=== PATIENT | female | born 1995 | race African-American/Black ===

== ENCOUNTER 2019-04-20 16:20 | Inpatient (IN) | payer OTHER ==
[2019-04-20 17:14] VITALS: BMI 33.1
[2019-04-20 18:54] LABS: BASO % 0.4 % (0-2.0); EOS % 0.9 % (0-4.5); HEMATOCRIT 35.9 % (32.4-45.2); HEMOGLOBIN 11.8 GM/dL (10.7-15.3); LYMPH % 19.6 % (8-40); MCH 27.2 pg (25.7-33.7); MCHC 32.9 g/dl (32.0-36.0); MEAN CELL VOLUME 82.5 fl (80-96); MEAN PLT VOLUME 7.8 fl (7.5-11.1); MONO % 7.8 % (3.8-10.2); NEUT % 71.3 % (42.8-82.8); PLATELET COUNT 222 K/MM3 (134-434); RBC 4.35 M/mm3 (3.60-5.2); WHITE BLOOD COUNT 6.9 K/mm3 (4.0-10.0)
[2019-04-20 19:12] LABS: INR 0.92 (0.83-1.09); PROTHROMBIN TIME (PATIENT) 10.8 SEC (9.7-13.0)
[2019-04-20 19:15] LABS: ACTIVATED PTT 31.9 SECONDS (25.2-36.5)
[2019-04-20 19:23] LABS: BLOOD UREA NITROGEN 3.9 mg/dL (7-18); CALCIUM 8.8 mg/dL (8.5-10.1); CREATININE 0.5 mg/dL (0.55-1.3); POTASSIUM 3.8 mmol/L (3.5-5.1)
--- NOTE | 2019-04-20 22:00 | HP ---
Past Medical History - Primary Care Physician PCP:: Izabel Qureshi - Admission Chief Complaint: Postdates. Oligohydramnious History of Present Illness: 23 yo EDC EGA 40.6 weeks admitted for induction due to oligo and BPP 11/15 History Source: Patient Limitations to Obtaining History: No Limitations - Past Medical History ...: 1 ...Para: 0 ...LMP: 07/08/18 ... Weeks Gestation by Dates: 40.6 ...EDC by Dates: 04/14/19 - Past Surgical History Past Surgical History: Yes: None Hx Myomectomy: No Hx Transabdominal Cerclage: No - Smoking History Smoking history: Never smoked Have you smoked in the past 12 months: No - Alcohol/Substance Use Hx Alcohol Use: No History of Substance Use: reports: None - Social History Usual Living Arrangement: Yes: With Spouse History of Recent Travel: No Home Medications - Allergies Allergies/Adverse Reactions: Allergies Allergy/AdvReac Type Severity Reaction Status Date / Time No Known Allergies Allergy Verified 04/20/19 16:56 - Home Medications Home Medications: Ambulatory Orders Prenat 115/Iron Fum/Folic/Dss [ 19 Tablet] 1 tab PO DAILY 04/20/19 Review of Systems - Review of Systems Constitutional: reports: No Symptoms Eyes: reports: No Symptoms HENT: reports: No Symptoms Neck: reports: No Symptoms Cardiovascular: reports: No Symptoms Respiratory: reports: No Symptoms Gastrointestinal: reports: No Symptoms Genitourinary: reports: No Symptoms Breasts: reports: No Symptoms Reported Musculoskeletal: reports: No Symptoms Integumentary: reports: No Symptoms Neurological: reports: No Symptoms Endocrine: reports: No Symptoms Hematology/Lymphatic: reports: No Symptoms Psychiatric: reports: No Symptoms Physical Exam - Maternity Vital Signs: Vital Signs Temperature 98.7 F 04/20/19 17:08 Pulse Rate 88 04/20/19 20:00 Respiratory Rate 18 04/20/19 20:00 Blood Pressure 132/78 04/20/19 20:00 O2 Sat by Pulse Oximetry (%) Constitutional: Yes: Well Nourished, No Distress Breast(s): Yes: WNL - Abdominal Exam/OB Fundal Height: 41 Number of Fetuses: Single Presentation: Vertex Contractions: Yes Regularity: Irregular Monitor Mode: External Heart Rate (range): 140 Heart Rate Location: [facility] Category: I Accelerations: Non-Uniform - Vaginal Exam/OB Dilatation (cm): 1 Effacement (%): 50 Presentation: Vertex/Position Station: -2 - Physical Exam Extremities: Yes: WNL Edema: No Integumentary: Yes: WNL Psychiatric: Yes: WNL, Alert, Oriented - Labs Lab Results: CBC, BMP 04/20/19 18:28 04/20/19 18:28 Hemorrhage Risk Assessment - Risk Factors Risk Score: 0 Risk Level: Low Risk Problem List - Problems (1) Post-dates Code(s): O48.0 - POST-TERM Qualifiers: Post-term type: 40-42 weeks gestation Qualified Code(s): O48.0 - Post-term Assessment/Plan Post dates IUP@41 week Oligio Poor BPP Cat 1 Plan Cervidil
[2019-04-20] MEDS ORDERED: PROMETHAZINE HCL 25 MG/1 ML VIAL IVPUSH ONE (22:04)
[2019-04-20] MEDS ORDERED: BUTORPHANOL TARTRATE 1 MG/ML VIAL IVPB ONE (22:04)
[2019-04-20] MEDS: ELECTROLYTE-148 SOLN 1,000 ML IV SCH (22:30)
[2019-04-20] MEDS ORDERED: BUTORPHANOL TARTRATE 1 MG/ML VIAL ONE ×2 (22:42)
[2019-04-20] MEDS ORDERED: PROMETHAZINE HCL 25 MG/1 ML VIAL ONE (22:43)
[2019-04-21] MEDS ORDERED: AMPICILLIN SODIUM 2 GM VIAL ONE (03:22)
[2019-04-21] MEDS ORDERED: AMPICILLIN - 2 GM in SODIUM CHLORIDE 100 ML IVPB ONE (03:30)
[2019-04-21] MEDS ORDERED: FENTANYL/BUPIVACAINE/NS/PF - PCEA - 50 ML DISP.SYRIN EP ONE ×3 (03:40→12:16)
[2019-04-21] MEDS ORDERED: LIDO 2%/EPI 1:200000 PRESRVFRE (20 ML SDVIAL) ONE ×2 (03:46→12:24)
[2019-04-21] MEDS ORDERED: BUPIVACAINE HCL/PF 2.5 MG/ML - 30 ML VIAL IJ ONE (03:46)
[2019-04-21] MEDS ORDERED: NALOXONE HCL 0.4 MG/ML VIAL IVPUSH PRN (04:10)
[2019-04-21] MEDS: FENTANYL/BUPIVACAINE/NS/PF - PCEA - 50 ML DISP.SYRIN EP SCH ×3 (04:15→12:21)
[2019-04-21] MEDS: AMPICILLIN - 1 GM in SODIUM CHLORIDE 100 ML IVPB SCH ×3 (07:33→19:45)
[2019-04-21 08:07] LABS: POC NITRAZINE POS
[2019-04-21] MEDS ORDERED: OXYTOCIN 30 UNITS in 0.9% NS 30 UNIT/500 ML INFUS.BAG IVPB ONE (08:22)
--- NOTE | 2019-04-21 08:27 | PN ---
Ante-Partal Exam - Subjective Vital Signs: Vital Signs Temperature 98.2 F 04/21/19 07:00 Pulse Rate 82 04/21/19 07:30 Respiratory Rate 20 04/21/19 07:30 Blood Pressure 112/68 04/21/19 07:30 O2 Sat by Pulse Oximetry (%) 100 04/21/19 07:30 Bleeding: No Headache: No Visual changes: No Right upper quadrant pain: No - Exam during Labor Category: I Monitor Accelerations: Present Monitor Decelerations: None Exam: Vaginal Dilatation (cm): 5
[2019-04-21] MEDS ORDERED: OXYTOCIN 30 UNITS in 0.9% NS 30 UNIT/500 ML INFUS.BAG IVPB SCH (08:30)
[2019-04-21] MEDS ORDERED: SODIUM CHLORIDE 100 ML IVPB ONE (10:58)
[2019-04-21] MEDS ORDERED: AMPICILLIN SODIUM 1 GM VIAL ONE (10:58)
[2019-04-21] MEDS: ELECTROLYTE-148 SOLN 1,000 ML IV SCH (12:52)
[2019-04-21] MEDS ORDERED: OXYTOCIN 20 UNITS in 0.9% NS 20 UNIT/1,000 ML INFUS.BAG IV ONE (14:05)
[2019-04-21] MEDS ORDERED: BENZOCAINE 20% 57 GM BOTTLE TP PRN (16:21)
[2019-04-21] MEDS ORDERED: BISACODYL 10 MG SUPP.RECT PR PRN (16:21)
[2019-04-21] MEDS ORDERED: METHYLERGONOVINE MALEATE 0.2 MG/1 ML AMP IM PRN (16:21)
[2019-04-21] MEDS ORDERED: IBUPROFEN 600 MG TABLET (FP) PO PRN (16:21)
[2019-04-21] MEDS ORDERED: ACETAMINOPHEN 325 MG TABLET (FP) PO PRN (16:21)
[2019-04-21] MEDS ORDERED: WITCH HAZEL 50% (TUCKS) 40 PAD/JAR PAD TP PRN (16:21)
[2019-04-21] MEDS ORDERED: BENZOCAINE 28 GM HEMORRHOIDAL OINTMENT PR PRN (16:21)
[2019-04-21] MEDS ORDERED: DINOPROSTONE 10 MG VAGINAL SUPPOSITORY VG ONE (16:22)
--- NOTE | 2019-04-21 16:24 | PROC ---
Obstetrical Vaccum Device - Doc. 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
[2019-04-21] MEDS ORDERED: OXYTOCIN 20 UNITS in 0.9% NS 20 UNIT/1,000 ML INFUS.BAG IV SCH (16:30)
[2019-04-22] MEDS ORDERED: FLU VACC QS2019-20(6MOS UP)/PF 60 MCG/0.5 ML SYRINGE IM ONE ×2 (06:45→10:00)
[2019-04-22 08:51] LABS: BASO % 0.1 % (0-2.0); EOS % 0.2 % (0-4.5); HEMATOCRIT 28.5 % (32.4-45.2); HEMOGLOBIN 9.3 GM/dL (10.7-15.3); LYMPH % 15.5 % (8-40); MCH 27.1 pg (25.7-33.7); MCHC 32.8 g/dl (32.0-36.0); MEAN CELL VOLUME 82.7 fl (80-96); MEAN PLT VOLUME 7.8 fl (7.5-11.1); MONO % 10.2 % (3.8-10.2); PLATELET COUNT 188 K/MM3 (134-434); RBC 3.44 M/mm3 (3.60-5.2); WHITE BLOOD COUNT 10.3 K/mm3 (4.0-10.0)
--- NOTE | 2019-04-22 09:09 | PN ---
Post Progress Note - Subjective Subjective: 23 yo Para 1 status post vacuum assisted vaginal delivery, seen and evaluated. Doing well. Post Day: 1 Type of Delivery: Vacuum Assist Vag Del Vital Signs: Vital Signs Temperature 97.9 F 04/22/19 06:00 Pulse Rate 74 04/22/19 06:00 Respiratory Rate 18 04/22/19 06:00 Blood Pressure 136/70 04/22/19 06:00 O2 Sat by Pulse Oximetry (%) 100 04/21/19 16:30 Breast Exam: Yes: Soft Uterus: Yes: Fundus Firm Abdomen/GI: Yes: Abdomen soft Lochia: Yes: Rubra Lochia, amount: Moderate Extremities: Yes: Calves non-tender Activity: Ambulating - Labs Labs: CBC WBC 10.3 K/mm3 (4.0-10.0) H 04/22/19 07:45 RBC 3.44 M/mm3 (3.60-5.2) L 04/22/19 07:45 Hgb 9.3 GM/dL (10.7-15.3) L 04/22/19 07:45 Hct 28.5 % (32.4-45.2) L D 04/22/19 07:45 MCV 82.7 fl (80-96) 04/22/19 07:45 MCH 27.1 pg (25.7-33.7) 04/22/19 07:45 MCHC 32.8 g/dl (32.0-36.0) 04/22/19 07:45 RDW 15.0 % (11.6-15.6) 04/22/19 07:45 Plt Count 188 K/MM3 (134-434) 04/22/19 07:45 MPV 7.8 fl (7.5-11.1) 04/22/19 07:45 Absolute Neuts (auto) 7.6 K/mm3 (1.5-8.0) 04/22/19 07:45 Neutrophils % 74.0 % (42.8-82.8) 04/22/19 07:45 Lymphocytes % 15.5 % (8-40) D 04/22/19 07:45 Monocytes % 10.2 % (3.8-10.2) 04/22/19 07:45 Eosinophils % 0.2 % (0-4.5) 04/22/19 07:45 Basophils % 0.1 % (0-2.0) 04/22/19 07:45 Nucleated RBC % 0 % (0-0) 04/22/19 07:45 Problem List - Problems (1) Status post vacuum-assisted vaginal delivery Problems reviewed: Yes Code(s): Z87.59 - PERSONAL HISTORY OF COMP OF PREG, CHLDBRTH AND THE PUERP Assessment/Plan Status post vaginal delivery Stable Continue routine care
[2019-04-22] MEDS ORDERED: DIPHTH,PERTUSS(ACELL),TET 0.5 ML DISP.SYRIN IM ONE (10:00)
[2019-04-22] MEDS ORDERED: FLU VACCINE QUAD 60 MCG/0.5 ML (MDV 19-20) IM ONE (10:00)
--- NOTE | 2019-04-23 07:28 | DS ---
Physical Exam-COMPLAINT MANAGER Vital Signs: Vital Signs Temperature 97.7 F 04/22/19 20:00 Pulse Rate 78 04/22/19 20:00 Respiratory Rate 20 04/22/19 20:00 Blood Pressure 130/75 04/22/19 20:00 O2 Sat by Pulse Oximetry (%) 100 04/21/19 16:30 Constitutional: No: No Distress Eyes: Yes: Conjunctiva Clear HENT: Yes: Atraumatic Neck: Yes: Supple Cardiovascular: Yes: Regular Rate and Rhythm Respiratory: Yes: Regular Gastrointestinal: Yes: Normal Bowel Sounds Pelvis: Yes: WNL Vaginal Exam: Yes: Bleeding Cervix: Yes: Normal Uterus: Yes: Firm ....Post : Yes: Uterus firm, Moderate lochia serosa Breast(s): Yes: WNL Extremities: Yes: WNL Neurological: Yes: Alert, Oriented ...Motor Strength: WNL Psychiatric: Yes: Alert, Oriented Labs: CBC, BMP 04/22/19 07:45 04/20/19 18:28 Delivery - Delivery Type of Anesthesia: Epidural Episiotomy/Laceration: Midline EBL (cc): 350 Delivery, Single - Stages of Labor Date 1st Stage Initiatied: 04/20/19 Time 1st Stage Initiated: 22:00 Date 2nd Stage Initiated: 04/21/19 Time 2nd Stage Initiated: 14:15 Date of Delivery: 04/21/19 Time of Delivery: 15:18 Time Placenta Delivered: 15:25 - Condition of Project 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: No Infant Gender: Female Weight: 7 lb 7 oz Total Hours ROM (Hrs/Mins): 12/15 - 1 Minute Total Score: 8 5 Minutes Total Score: 9 - [place] Feeding Plan Initial Plan: Exclusive throughout hospitalization Discharge Summary Problems reviewed: Yes Reason For Visit: INDUCTION OF LABOR Current Active Problems Post-dates (Acute) Status post vacuum-assisted vaginal delivery (Acute) Procedures: Principal: Vacuum assisted vaginal delivery Hospital Course: Routine care Health Concerns: None Plan of Treatment: Routine post op care F/U with MD in 6 weeks Goals: Resume regular activities in 6 weeks Condition: Good - Instructions Diet, Activity, Other Instructions: Dr. Izabel Qureshi Retail Marketing Executive discharge instructions Physical activity Resume your normal everyday activity as tolerated no heavy lifting or exercise until seen by your surgeon. You may walk unlimited jaelyn of and climb stairs. You may resume driving the car when you feel safe and comfortable behind the wheel. No sexual activity as instructed by Dr. Qureshi. Wound care If you have a bandage, leave it on, and keep dry for 48-72 hours. After that time discard the outer bandage. If they are tapes on the skin under the out of bandage leave them in place. They will peel off in the next 7 to 10 days. Do Not Peel them off. You may shower the day after surgery. If there are tapes present on the skin, you may shower over them. Diet There are no dietary restrictions. Eat healthy, high-fiber foods. Drink 6 to 8 glasses of liquid each day. This will assist in keeping your bowels are regular. Pain management You may take Tylenol or acetaminophen or Ibuprofen (for example, Motrin, Advil etc.) from my pain prescription medication is ordered should be taken as prescribed for moderate to severe pain. Call Dr. Qureshi for any of the following: Severe pain not relieved by medication Fever of 101 or higher Excessive bleeding or drainage on dressing Inability to urinate Call the office at [phone] for an appointment in seven days. Disposition: HOME - Home Medications Comprehensive Discharge Medication List: Ambulatory Orders Prenat 115/Iron Fum/Folic/Dss [ 19 Tablet] 1 tab PO DAILY 04/20/19
[2019-04-23 07:57] VITALS: BP 132/77; PULSE 82; TEMP 98.6
--- NOTE | 2019-04-25 20:54 | PN ---
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
== END 2019-04-23 13:25 | disposition home or self-care (01) | DRG 807 ==
LOC: JLDR 16:20 → J3W 04-21 16:30
PROVIDERS: ADMIT Obstetrics & Gynecology; ATTEND Obstetrics & Gynecology
PROC: 10D07Z6 Extraction of Products of Conception, Vacuum, Via Natural or Artificial Opening (ICD-10-PCS; principal; 2019-04-21)
PROC: 0W8NXZZ Division of Female Perineum, External Approach (ICD-10-PCS; 2019-04-21)
PROC: 10E0XZZ Delivery of Products of Conception, External Approach (ICD-10-PCS; 2019-04-21)
DX: O75.81 Maternal exhaustion complicating labor and delivery (principal); Z37.0 Single live birth; O48.0 Post-term pregnancy; O76 Abnormality in fetal heart rate and rhythm complicating labor and delivery; Z3A.41 41 weeks gestation of pregnancy
CPT/HCPCS: 36415; 36600; 59409; 80048; 82803; 83986-QW; 85025; 85610; 85730; 86593; 86850; 86900; 86901; 90686; 90715

== ENCOUNTER 2021-03-18 13:07 | Inpatient (IN) | payer OTHER ==
[2021-03-18] MEDS: DEXTROSE 5%-LACTATED RINGERS 1,000 ML IV SCH (13:25)
[2021-03-18] MEDS ORDERED: OXYTOCIN 30 UNITS in 0.9% NS 30 UNIT/500 ML INFUS.BAG IVPB SCH (13:45)
[2021-03-18 13:56] VITALS: BMI 32.5
[2021-03-18 14:24] LABS: BASO % 0.2 % (0-2.0); EOS % 0.5 % (0-4.5); HEMATOCRIT 30.8 % (32.4-45.2); HEMOGLOBIN 10.3 GM/dL (10.7-15.3); LYMPH % 15.9 % (8-40); MCH 26.5 pg (25.7-33.7); MCHC 33.4 g/dl (32.0-36.0); MEAN CELL VOLUME 79.3 fl (80-96); MEAN PLT VOLUME 7.4 fl (7.5-11.1); MONO % 6.7 % (3.8-10.2); NEUT % 76.7 % (42.8-82.8); PLATELET COUNT 224 10^3/uL (134-434); RBC 3.88 M/mm3 (3.60-5.2); RDW 16.1 % (11.6-15.6); WHITE BLOOD COUNT 7.8 K/mm3 (4.0-10.0)
[2021-03-18 14:32] LABS: INR 0.9 (0.83-1.09); PROTHROMBIN TIME (PATIENT) 11.1 SEC (9.7-13.0)
[2021-03-18 14:35] LABS: ACTIVATED PTT 28.2 SECONDS (25.2-36.5)
[2021-03-18 14:42] LABS: BLOOD UREA NITROGEN 6.3 mg/dL (7-18); CALCIUM 8.4 mg/dL (8.5-10.1)
[2021-03-18 14:46] LABS: CREATININE 0.5 mg/dL (0.55-1.3)
[2021-03-18] MEDS ORDERED: PCA PUMP NR ONE ×2 (18:15→22:23)
[2021-03-18] MEDS ORDERED: FENTANYL/BUPIVACAINE/NS/PF - PCEA - 50 ML DISP.SYRIN EP ONE ×2 (18:21→22:23)
[2021-03-18] MEDS: FENTANYL/BUPIVACAINE/NS/PF - PCEA - 50 ML DISP.SYRIN EP SCH ×2 (18:30→22:40)
[2021-03-18] MEDS ORDERED: NALOXONE HCL 0.4 MG/ML VIAL IVPUSH PRN (20:23)
[2021-03-19] MEDS ORDERED: PCA PUMP NR ONE ×4 (00:21→07:49)
[2021-03-19] MEDS: DEXTROSE 5%-LACTATED RINGERS 1,000 ML IV SCH (02:30)
[2021-03-19] MEDS ORDERED: FENTANYL/BUPIVACAINE/NS/PF - PCEA - 50 ML DISP.SYRIN EP ONE ×2 (03:13→07:49)
[2021-03-19] MEDS: FENTANYL/BUPIVACAINE/NS/PF - PCEA - 50 ML DISP.SYRIN EP SCH (03:15)
[2021-03-19] MEDS ORDERED: IBUPROFEN 600 MG TABLET (FP) PO ONE (08:02)
[2021-03-19] MEDS ORDERED: LIDOCAINE HCL 1% PRESERVATIVE FREE - 30ML VIAL ONE (10:36)
[2021-03-19] MEDS ORDERED: OXYTOCIN 30 UNITS in 0.9% NS 30 UNIT/500 ML INFUS.BAG IVPB ONE (10:37)
[2021-03-19] MEDS ORDERED: OXYTOCIN 20 UNITS in 0.9% NS 20 UNIT/1,000 ML INFUS.BAG IV ONE (10:37)
[2021-03-19] MEDS ORDERED: METHYLERGONOVINE MALEATE 0.2 MG/1 ML AMP IM PRN (11:26)
[2021-03-19] MEDS ORDERED: BISACODYL 10 MG SUPP.RECT RC PRN (11:26)
[2021-03-19] MEDS ORDERED: ACETAMINOPHEN 325 MG TABLET (FP) PO PRN (11:26)
[2021-03-19] MEDS ORDERED: BENZOCAINE 28 GM HEMORRHOIDAL OINTMENT TP PRN (11:26)
[2021-03-19] MEDS ORDERED: BENZOCAINE 20% 57 GM BOTTLE TP PRN (11:26)
[2021-03-19] MEDS ORDERED: IBUPROFEN 600 MG TABLET (FP) PO PRN (11:26)
[2021-03-19] MEDS ORDERED: WITCH HAZEL 50% (TUCKS) 40 PAD/JAR PAD TP PRN (11:26)
[2021-03-19] MEDS ORDERED: OXYTOCIN 20 UNITS in 0.9% NS 20 UNIT/1,000 ML INFUS.BAG IV SCH (11:30)
[2021-03-19 12:27] LABS: CORD HCO3 23.2 mmHg (20-29); CORD PCO2 67.1 mmHg (30-78); CORD pH 7.156 (7.14-7.44)
[2021-03-19 12:30] LABS: CORD BASE EXCESS -5.6 mmol/L (0-2); CORD HCO3 20.5 mmHg (20-29); CORD PCO2 41.9 mmHg (30-78); CORD pH 7.307 (7.14-7.44)
[2021-03-19] MEDS: FERROUS SO4 325 MG TABLET (FP) PO SCH (19:15)
[2021-03-20 02:35] VITALS: TEMP 98.2
[2021-03-20 09:06] LABS: BASO % 0.2 % (0-2.0); EOS % 0.6 % (0-4.5); HEMATOCRIT 25.7 % (32.4-45.2); HEMOGLOBIN 8.5 GM/dL (10.7-15.3); MCH 26.5 pg (25.7-33.7); MCHC 33.1 g/dl (32.0-36.0); MEAN CELL VOLUME 80.2 fl (80-96); MEAN PLT VOLUME 7.6 fl (7.5-11.1); NEUT % 74.2 % (42.8-82.8); PLATELET COUNT 188 10^3/uL (134-434); RBC 3.21 M/mm3 (3.60-5.2); RDW 15.5 % (11.6-15.6)
[2021-03-20] MEDS: FERROUS SO4 325 MG TABLET (FP) PO SCH ×2 (09:15→17:13)
[2021-03-20] MEDS: PRENATAL VITAMINS W/ FOLIC ACID TABLET (FP) PO SCH (09:15)
[2021-03-20] MEDS ORDERED: SENNOSIDES/DOCUSATE COMBO (SENNA PLUS) TABLET (UD) PO PRN (22:00)
[2021-03-21] MEDS: FENTANYL/BUPIVACAINE/NS/PF - PCEA - 50 ML DISP.SYRIN EP SCH ×2 (07:23→07:34)
[2021-03-21] MEDS: PRENATAL VITAMINS W/ FOLIC ACID TABLET (FP) PO SCH (10:13)
[2021-03-21] MEDS: FERROUS SO4 325 MG TABLET (FP) PO SCH (10:13)
[2021-03-21 12:02] VITALS: BP 124/82; PULSE 63
== END 2021-03-21 12:45 | disposition home or self-care (01) | DRG 807 ==
LOC: JLDR 13:07 → J3W 03-19 13:20
PROVIDERS: ADMIT Obstetrics & Gynecology; ATTEND Obstetrics & Gynecology
PROC: 10E0XZZ Delivery of Products of Conception, External Approach (ICD-10-PCS; principal; 2021-03-19)
PROC: 0HQ9XZZ Repair Perineum Skin, External Approach (ICD-10-PCS; 2021-03-19)
DX: O48.0 Post-term pregnancy (principal); O26.13 Low weight gain in pregnancy, third trimester; O77.0 Labor and delivery complicated by meconium in amniotic fluid; O70.0 First degree perineal laceration during delivery; Z3A.40 40 weeks gestation of pregnancy; Z37.0 Single live birth
CPT/HCPCS: 36415; 36600; 59409; 80048; 82803; 85025; 85610; 85730; 86780; 86850; 86900; 86901